=== PATIENT | female | born 1945 | race Caucasian/White ===

== ENCOUNTER 2021-08-03 05:16 | Day surgery (SDC) | payer MEDICARE, OTHER ==
[~2021-08-03] VITALS: Ht 167.6 cm; Wt 93.2 kg
[~2021-08-03 05:16] MED LIST: ACET-3385 PO; APIX5TAB PO; ASCO500 PO; ASPI-1450 PO; CALC1CAP22 PO; CHL25 PO; CLOP75TA60 PO; CYAN100T45 PO; DIPH25CA85 PO; DOCU-349 PO; LEVO100 PO; LORA-999 PO; MELO-107 PO; METO25XL PO; OMEP20 PO; ONDA-104 PO; POTA-92 PO; ROSU5TAB PO; VITA400C79 PO; WARF2TAB30 PO
[2021-08-03] MEDS ORDERED: SODIUM CHLORIDE 0.9% 1,000 ML IV ONE (05:30)
[2021-08-03] MEDS ORDERED: SODIUM CHLORIDE 0.9% 1,000 ML ONE (05:35)
[2021-08-03] MEDS ORDERED: DIAZEPAM 5 MG TABLET ONE (06:28)
[2021-08-03] MEDS ORDERED: DiphenhydrAMINE HCL 50 MG CAPSULE ONE (06:28)
[2021-08-03] MEDS ORDERED: POTA99TA17 PO (06:53)
[2021-08-03] MEDS ORDERED: IOHEXOL 300 MG/ML 50 ML VIAL ONE (07:06)
[2021-08-03] MEDS ORDERED: IOHEXOL 300 MG/ML 100 ML VIAL ONE (07:06)
[2021-08-03] MEDS ORDERED: IOHEXOL 300 MG/ML 150 ML VIAL ONE (07:06)
[2021-08-03] MEDS ORDERED: SODIUM BICARBONATE 50 MEQ/50 ML VIAL ONE (07:06)
[2021-08-03] MEDS ORDERED: LIDOCAINE/PF 1% 30 ML VIAL ONE (07:06)
[2021-08-03] MEDS ORDERED: HEPARIN SODIUM 1000 UNITS/NS 1,000 ML ONE (07:07)
[2021-08-03 07:30] VITALS: BP 141/62
[2021-08-03] MEDS ORDERED: DIAZEPAM 5 MG TABLET PO ONE (07:30)
[2021-08-03] MEDS ORDERED: DiphenhydrAMINE HCL 50 MG CAPSULE PO ONE (07:30)
[2021-08-03] MEDS ORDERED: ASPIRIN 81 MG CHEWABLE TABLET PO ONE (07:30)
[2021-08-03] MEDS ORDERED: PHENYLEPHRINE 200 MG/D5%-WATER 0 ML IV ONE (07:36)
[2021-08-03] MEDS ORDERED: FentaNYL CITRATE PF 100 MCG/2 ML VIAL ONE (07:43)
[2021-08-03] MEDS ORDERED: MIDAZOLAM HCL 2 MG/2 ML VIAL ONE ×3 (07:43→08:09)
[2021-08-03] MEDS ORDERED: HEPARIN SODIUM 1000 UNITS/NS 1,000 ML IARTER ONE (07:45)
[2021-08-03] MEDS ORDERED: MIDAZOLAM HCL 2 MG/2 ML VIAL IVP ONE ×3 (07:45→08:15)
[2021-08-03] MEDS ORDERED: IOHEXOL 300 MG/ML 150 ML VIAL IARTER ONE (07:45)
[2021-08-03] MEDS ORDERED: IOHEXOL 300 MG/ML 50 ML VIAL IARTER ONE (07:45)
[2021-08-03] MEDS ORDERED: FentaNYL CITRATE PF 100 MCG/2 ML VIAL IVP ONE ×3 (07:45→08:00)
[2021-08-03] MEDS ORDERED: LIDOCAINE 1% 30 ML/SOD BICARB 8.4% 4 ML SQ ONE (07:45)
[2021-08-03] MEDS ORDERED: IOHEXOL 300 MG/ML 100 ML VIAL IARTER ONE (07:45)
[2021-08-03 08:13] VITALS: BP 151/64
[2021-08-03] MEDS ORDERED: OMEPRAZOLE 20 MG CAPSULE PO ONE (09:45)
== END 2021-08-03 12:35 | disposition home or self-care (01) ==
LOC: CATHLAB 05:16
PROVIDERS: ATTEND Internal Medicine Interventional Cardiology
DX: R94.39 Abnormal result of other cardiovascular function study (principal); I35.0 Nonrheumatic aortic (valve) stenosis; I10 Essential (primary) hypertension; E66.01 Morbid (severe) obesity due to excess calories; E78.00 Pure hypercholesterolemia, unspecified; I48.0 Paroxysmal atrial fibrillation; Z72.89 Other problems related to lifestyle; F40.240 Claustrophobia; Z90.710 Acquired absence of both cervix and uterus; Z98.41 Cataract extraction status, right eye; Z98.42 Cataract extraction status, left eye; Z79.899 Other long term (current) drug therapy; Z98.890 Other specified postprocedural states; Z95.0 Presence of cardiac pacemaker; Z87.01 Personal history of pneumonia (recurrent); Z20.822 Contact with and (suspected) exposure to COVID-19; Z85.3 Personal history of malignant neoplasm of breast; Z79.82 Long term (current) use of aspirin
CPT/HCPCS: 93005; 93458; 99152; 99153; C1760; J1644; J2250; J3010; J3490 ×2; J7030; Q9967 ×3; J2370